=== PATIENT | female | born 1990 | race American Indian/Alaskan Native ===

== ENCOUNTER 2018-09-20 22:24 | Emergency (ER) | payer SELFPAY ==
[2018-09-20 23:36] LABS: Basophils # (Auto) 0.1 K/mm3 (0.0-0.1); Eosinophils # (Auto) 0.3 K/mm3 (0.0-0.4); Eosinophils % (Auto) 4.1 % (0.0-4.3); Hematocrit 37.5 % (30.3-42.9); Hemoglobin 13.2 gm/dl (10.1-14.3); Lymphocytes # (Auto) 2.8 K/mm3 (1.2-5.4); Mean Corpuscular HGB Conc 35 % (30-34); Mean Corpuscular Volume 80 fl (79-97); Monocytes # (Auto) 0.6 K/mm3 (0.0-0.8); Monocytes % (Auto) 7.8 % (0.0-7.3); Platelet Count 271 K/mm3 (140-440); Red Blood Count 4.69 M/mm3 (3.65-5.03); Red Cell Distribution Width 13.5 % (13.2-15.2)
[2018-09-20 23:55] LABS: BUN/Creatinine Ratio 20; Blood Urea Nitrogen 12 mg/dL (7-17); Calcium 9.3 mg/dL (8.4-10.2); Hemolysis Index 31
[2018-09-21] MEDS ORDERED: IBUPROFEN PO ONE (02:05)
--- NOTE | 2018-09-21 02:06 | Emergency Department Report ---
ED Chest Pain HPI - General Chief Complaint: Chest Pain Stated Complaint: CHEST PAINS Time Seen by Provider: 09/21/18 01:46 Source: patient Mode of arrival: Ambulatory Limitations: No Limitations - History of Present Illness Initial Comments: 27-year-old -[place]ag[place] female with a past medical history of sickle cell disease comes in for right-sided sharp chest pain starting yesterday. Patient denies any radiation of pain. She denies any nausea no vomiting. Patient reports that the pain is worse with deep breath it's sharp throbbing and interm ittent. Patient says nothing makes it better. Patient denies any recent travels denies any cancers denies any shortness of breathing. 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 She reports she has a 2-year-old child. She admits to intermittent dizziness. She is on control Nexplon In her arm. MD Complaint: chest pain -: days(s) (1) Pain Location: right chest Pain Radiation: none Quality: sharp, other (throbbing) Improves With: nothing Worsens With: other (deep breath) Treatments Prior to Arrival: none - Related Data Previous Rx's Medication Instructions Recorded Last Taken Type Ibuprofen [Motrin 600 MG tab] 600 mg PO Q8H PRN #30 tablet 09/21/18 Unknown Rx Allergies Allergy/AdvReac Type Severity Reaction Status Date / Time No Known Allergies Allergy Unverified 09/20/18 22:36 Heart Score - HEART Score History: Slightly suspicious EKG: Normal Age: < 45 Risk factors: No known risk factors Troponin: < normal limit HEART Score: 0 ED Review of Systems ROS: Stated complaint: CHEST PAINS Other details as noted in HPI Comment: All other systems reviewed and negative Cardiovascular: chest pain ED Past Medical Hx - Past Medical History Previous Medical History?: Yes Hx Sickle Cell Disease: Yes - Surgical History Past Surgical History?: No - Social History Smoking Status: Current Every Day Smoker Substance Use Type: Alcohol - Medications Home Medications: Home Medications Medication Instructions Recorded Confirmed Last Taken Type Ibuprofen [Motrin 600 MG tab] 600 mg PO Q8H PRN #30 tablet 09/21/18 Unknown Rx ED Physical Exam - General Limitations: No Limitations General appearance: alert, in no apparent distress - Head Head exam: Present: atraumatic, normocephalic - Eye Eye exam: Present: EOMI - ENT ENT exam: Present: mucous membranes moist - Respiratory Respiratory exam: Present: normal lung sounds bilaterally. Absent: respiratory distress, chest wall tenderness - Cardiovascular Cardiovascular Exam: Present: regular rate, normal rhythm. Absent: systolic mur mur, diastolic murmur, rubs, gallop - Extremities Exam Extremities exam: Present: normal inspection, full ROM - Neurological Exam Neurological exam: Present: alert, oriented X3, normal gait - Psychiatric Psychiatric exam: Present: normal affect, normal mood - Skin Skin exam: Present: warm, dry, intact, normal color. Absent: rash ED Course Vital Signs 09/20/18 22:39 Temperature 98.2 F Pulse Rate 81 Respiratory 20 Rate Blood Pressure 127/83 O2 Sat by Pulse 100 Oximetry KARLO score - Karlo Score Age > 65: (0) No Aspirin use within the Past 7 Days: (0) No 3 or more CAD Risk Factors: (0) No 2 or more Angina events in past 24 hrs: (0) No Known CAD with more than 50% Stenosis: (0) No Elevated Cardiac Markers: (0) No ST Deviation Greater than 0.5mm: (0) No KARLO Score: 0 ED Medical Decision Making - Lab Data Result diagrams: 09/20/18 23:13 09/20/18 23:13 - Radiology Data Radiology results: report reviewed FINAL REPORT PROCEDURE: XR CHEST ROUTINE 2V TECHNIQUE: PA and lateral chest radiographs were obtained. CPT 69694 HISTORY: chest pain worse with deep breath COMPARISON: No prior studies are available for comparison. FINDINGS: Heart: Normal. Mediastinum/Vessels: Normal. Lungs/Pleural space: Normal. Bony thorax: No acute osseous abnormality. Other: IMPRESSION: Normal examination. Transcribed By: CO Dictated By: GAEL LEWIS MD Electronically Authenticated By: GAEL LEWIS MD Signed Date/Time: 09/21/18240 DD/ 2 TD/TT: 09/21/18242 FINAL REPORT EXAM: CT ANGIO CHEST HISTORY: chest pain with deep inspiration positive d-dimer TECHNIQUE: CT imaging obtained through the chest in pulmonary angiographic phase following intravenous administration of contrast. Transaxial, Coronal and sagittal reformats with maximal intensity projections are provided. PRIORS: None. FINDINGS: Normal caliber main pulmonary artery. Well opacified pulmonary arterial tree. No pulmonary embolism. No pericardial effusion. Thoracic aorta is normal in course and caliber. No periaortic fluid or stranding. No pneumothorax, effusion or focal airspace disease. In the anterior right middle lobe there are a couple of solid-appearing nodules measuring up to 5 millimeters on axial series 2, image 49. A right upper lung solid-appearing round nodule measures approximately 4 millimeters on axial series 2, image 29. A right apical round solid-appearing nodule measures up to 4 millimeters on series 2, image 19. A left upper lobe round solid-appearing nodule measures up to 4 millimeters on series 2, image 37. The central airways are patent. No bronchiectasis. Imaged portion of the upper abdomen is unremarkable. The superficial soft tissues are unremarkable. No acute bony abnormality or worrisome osseous lesions identified. IMPRESSION: No pulmonary embolism or other acute finding. Several scattered round solid-appearing pulmonary nodules in both lungs measure up to 5 [address]imeters. Consider [address] follow-up if these findings have not been previously documented. Transcribed By: MB Dictated By: PATRICK KENDRICK MD Electronically Authenticated By: PATRICK KENDRICK MD Signed Date/Time: 09/21/18434 DD/ 6 TD/TT: 09/21/18436 - Medical Decision Making Patient has been evaluated by this provider in fast track. Ibuprofen 600 mg given for pain management Chest pain protocol has been ordered d-dimer has been ordered chest x-ray has been ordered 2 negative troponins normal chest x-ray d-dimer is pending D-dimer is positive at 337. Discussed with Dr. Dowd we will do a chest CTA patient was informed of the reason to be sure there is not a pulmonary embolism. Patient verbalized understanding. Patient's CT came back with multiple pulmonary nodules recommend a follow-up CT in 12 months. Patient will be referred to director institution. Critical care attestation.: If time is entered above; I have spent that time in minutes in the direct care of this critically ill patient, excluding procedure time. ED Disposition Clinical Impression: Chest pain, atypical, Multiple lung nodules on CT Disposition: -01 TO HOME OR SELFCARE Is pt being admited?: No Does the pt Need Aspirin: No Condition: Stable Instructions: Chest Pain (ED) Additional Instructions: Please take ibuprofen as needed for pain. Please follow up with director institution I have listed his information below. U have multiple pulmonary nodules that will need to have a repeat CT in 12 months but a follow-up with director institution in the next couple weeks. Prescriptions: Ibuprofen [Motrin 600 MG tab] 600 mg PO Q8H PRN #30 tablet PRN Reason: Pain Referrals: PRIMARY CARE, [Primary Care Provider] - 3-5 Days LAUREN BENZ MD [Staff Physician] - 3-5 Days Forms: Work/School Release Form(ED)
--- NOTE | 2018-09-21 02:41 | XRay Report ---
FINAL REPORT PROCEDURE: XR CHEST ROUTINE 2V TECHNIQUE: PA and lateral chest radiographs were obtained. CPT 38965 HISTORY: chest pain worse with deep breath COMPARISON: No prior studies are available for comparison. FINDINGS: Heart: Normal. Mediastinum/Vessels: Normal. Lungs/Pleural space: Normal. Bony thorax: No acute osseous abnormality. Other: IMPRESSION: Normal examination.
--- NOTE | 2018-09-21 04:35 | Cat Scan Report ---
FINAL REPORT EXAM: CT ANGIO CHEST HISTORY: chest pain with deep inspiration positive d-dimer TECHNIQUE: CT imaging obtained through the chest in pulmonary angiographic phase following intraveno us administration of contrast. Transaxial, Coronal and sagittal reformats with maximal intensity proj ections are provided. PRIORS: None. FINDINGS: Normal caliber main pulmonary artery. Well opacified pulmonary arterial tree. No pulmonary embolism. No pericardial effusion. Thoracic aorta is normal in course and caliber. No periaortic fluid or stranding. No pneumothorax, effusion or focal airspace disease. In the anterior right middle lobe there are a couple of solid-appearing nodules measuring up to 5 mil limeters on axial series 2, image 49. A right upper lung solid-appearing round nodule measures approximately 4 millimeters on axial series 2, image 29. A right apical round solid-appearing nodule measures up to 4 millimeters on series 2, image 19. A left upper lobe round solid-appearing nodule measures up to 4 millimeters on series 2, image 37. The central airways are patent. No bronchiectasis. Imaged portion of the upper abdomen is unremarkable. The superficial soft tissues are unremarkable. No acute bony abnormality or worrisome osseous lesions identified. IMPRESSION: No pulmonary embolism or other acute finding. Several scattered round solid-appearing pulmonary nodules in both lungs measure up to 5 [address]imeters. Consider [address] follow-up if these findings have not been previously documented.
[2018-09-21 05:10] VITALS: BP 90/67
== END 2018-09-21 05:09 | disposition home or self-care (01) ==
LOC: ED 22:24
DX: R07.89 Other chest pain (principal); R91.8 Other nonspecific abnormal finding of lung field; F17.200 Nicotine dependence, unspecified, uncomplicated
CPT/HCPCS: 36415; 71046; 71275; 80048; 84484; 84703; 85025; 85379; 93005; 93010; 99285; Q9967